=== PATIENT | male | born 1970 | race Hispanic/Latino ===

== ENCOUNTER 2017-02-19 03:00 | Inpatient (IN) | payer MEDICAID, OTHER ==
[2017-02-19 03:01] VITALS: BMI 34.2
[2017-02-19 03:54] LABS: RBC URINE < 1 /hpf (0-3); URINE BILIRUBIN NEGATIVE (NEGATIVE); URINE BLOOD NEGATIVE (NEGATIVE); URINE COLOR Straw (YELLOW); URINE GLUCOSE (UA) NORMAL (Normal); URINE KETONE NEGATIVE (NEGATIVE); URINE LEUKOCYTE ESTERASE NEG Leu/uL (Negative); URINE PROTEIN NEGATIVE (NEGATIVE); URINE UROBILINOGEN NORMAL mg/dL (0.2-1.0); WBC URINE < 1 /hpf (0-5)
[2017-02-19 03:54] LABS: BASO % 0.4 % (0.0-2.0); EOS # 0.1 K/uL (0.0-0.7); EOS % 2.5 % (0.0-4.0); HEMATOCRIT 38.4 % (35.0-51.0); LYMPH # 1.1 K/uL (1.0-4.3); LYMPH % 20.1 % (20.0-40.0); MEAN CELL VOLUME 85.8 fL (80.0-94.0); MEAN CORPUSCULAR HEMOGLOBIN 28.1 pg (27.0-31.0); MEAN CORPUSCULAR HGB CONC 32.8 g/dL (33.0-37.0); MEAN PLATELET VOLUME 7.9 fL (7.2-11.7); MONO # 0.7 K/uL (0.0-0.8); MONO % 11.6 % (0.0-10.0); RED CELL DISTRIBUTION WIDTH 13.7 % (11.5-14.5); WHITE BLOOD COUNT 5.6 K/uL (4.8-10.8)
[2017-02-19 04:03] LABS: CHLORIDE 102 mmol/L (98-107); SODIUM 143 mmol/L (132-148)
[2017-02-19 04:04] LABS: POTASSIUM 3.8 mmol/L (3.6-5.2)
[2017-02-19 04:06] LABS: ALB/GLOB RATIO 1.1 (1.0-2.1); ALKALINE PHOSPHATASE 78 U/L (38-126); ALT/SGPT 65 U/L (21-72); AST/SGOT 58 U/L (17-59); BILIRUBIN,TOTAL 0.6 mg/dL (0.2-1.3); BLOOD UREA NITROGEN 17 mg/dL (9-20); CARBON DIOXIDE 27 mmol/L (22-30); GFR AFRICAN-AMERICAN > 60; GLUCOSE,RANDOM 108 mg/dL (75-110); TOTAL PROTEIN 7.6 g/dL (6.3-8.3)
[2017-02-19 04:19] LABS: ALCOHOL SERUM < 10 mg/dl (0-10); CALCIUM 9.4 mg/dl (8.6-10.4)
--- NOTE | 2017-02-19 04:31 | C.PDOC ---
History Of Present Illness 46 year old male who presents to the ER depressed with suicidal ideation. Patient denies suicidal plan or physical complaints. Time Seen by Provider: 02/19/17 03:18 Chief Complaint (Nursing): Psychiatric Evaluation History Per: Patient History/Exam Limitations: no limitations Onset/Duration Of Symptoms: Days Current Symptoms Are (Timing): Still Present Suicide/Self Injury Attempted (Context): None Modifying Factor(s): None Associated Symptoms: Depression, Suicidal Thoughts. denies: Suicidal Plan Involuntary Hold By: None Recent travel outside of the [place]: No Past Medical History Reviewed: Historical Data, Nursing Documentation, Vital Signs Vital Signs: Last Vital Signs Temp 98.6 F 02/19/17 05:28 Pulse 74 02/19/17 05:28 Resp 16 02/19/17 05:28 BP 145/93 H 02/19/17 05:28 Pulse Ox 100 02/19/17 05:59 - Medical History PMH: Anxiety, Bipolar Disorder, Depression, Fractures (COMPOUND FX OF THERIGHT ANKLE), Hypothyroidism Surgical History: CABG - [facility] MEDICATION MANAGEMENT (08/04/16) Family History: States: Unknown Family Hx - Social History Hx Alcohol Use: No Hx Substance Use: No Review Of Systems Constitutional: Negative for: Fever, Chills Gastrointestinal: Negative for: Nausea, Vomiting, Diarrhea Psych: Positive for: Depression, Suicidal ideation Physical Exam - Physical Exam Appears: Non-toxic, No Acute Distress Skin: Normal Color, Warm, Dry Head: Atraumatic, Normacephalic Oral Mucosa: Moist Chest: Symmetrical, No Tenderness Cardiovascular: Rhythm Regular, No Murmur Respiratory: Normal Breath Sounds, No Rales, No Rhonchi, No Wheezing Gastrointestinal/Abdominal: Soft, No Tenderness Neurological/Psych: Oriented x3, Normal Speech, Normal Cognition ED Course And Treatment - Laboratory Results Result Diagrams: 02/19/17 03:51 02/19/17 03:51 O2 Sat by Pulse Oximetry: 100 (Room air) Pulse Ox Interpretation: Normal Progress Note: Blood work ordered. Patient screened by cold storage worker; patient accepted for psychiatric admission. Patient is medically cleared. Disposition Counseled Patient/Family Regarding: Diagnosis, Need For Followup, Rx Given - Disposition Disposition: HOSPITALIZED Disposition Time: 05:58 Condition: STABLE - Clinical Impression Clinical Impression: Bipolar disorder, Suicidal ideation - Scribe Statement The provider has reviewed the documentation as recorded by the Scribe Wayne Monterroso All medical record entries made by the Minervaibanahi were at my direction and personally dictated by me. I have reviewed the chart and agree that the record accurately reflects my personal performance of the history, physical exam, medical decision making, and the department course for this patient. I have also personally directed, reviewed, and agree with the discharge instructions and disposition.
--- NOTE | 2017-02-19 06:10 | PCM.BM ---
<Lisandro Palomino - Last Filed: 02/19/17 06:07> Treatment Plan Problems - Problems identified on initial assessmt Depression Date Initiated: 02/19/17 Time Initiated: 06:08 Assessment reference: NA Status: Active Suicidal Ideation Date Initiated: 02/19/17 Time Initiated: 06:09 Assessment reference: NA Status: Active Treatment assets and liabiliti Patient Assests: cooperative, educated, self-reliant, ADL independent, negotiates basic needs, cognitively intact Patient Liabilities: medical problems, other (Depressed. Claimed that his was admitted at the other hospital with psych issues.) - Milieu Protocol Maintain good personal hygiene: daily Encourage regular showers, daily Remind patient to perform daily oral care, daily Assist patient to perform ADL's Maintain personal safety: every shift Educate patient to report safety concerns to staff, every shift Monitor environment for contraband/sharps Medication safety: Monitor for expected outcome, potential side effects: every shift, Assess barriers to learning: every shift, Assess readiness for medication education: every shift <Marcel Becerril - Last Filed: 02/19/17 11:51> - Diagnosis (1) Major depression, recurrent Status: Acute Interventions: 02/19/17 11:51 * Assess/adjust medications daily and /or as needed * See patient on an individual basis 7x/week to assess symptoms of depression * Monitor for side effects & effectiveness of medications * <Maria E Nova - Last Filed: 02/20/17 10:40> Family Contact Family involvement: Family/SO is involved Family contact: Patient declines to allow family contact at present - Goals for Treatment Patient goals for treatment: "I need a night outpatient program." Discharge/Continuing Care - Education Needs Education Needs: Patient Medication, Patient Coping Skills - Discharge Discharge Criteria: Tolerates medication w/o severe side effects, Free of Suicidal thoughts Discharge to:: Home, With Family - Treatment Team Participation Discussed with Family/SO: No Was Patient/Family/SO present at Treatment Team Meeting: Yes
--- NOTE | 2017-02-19 14:27 | PCM.PSYCH ---
Initial Psychiatric Evaluation - Initial Psychiatric Evaluation Type of Admission: Voluntary Legal Status: Capacity Chief Complaint (in patient's own words): " I feel like giving up on life" History of Present Illness and Precipitating Events: The pt is seen, chart reviewed and case discussed. Mr. Smith is a 46 yo male who presented to the hospital last night with ideation's for suicide, along with depression and anxiety. The patient is most concerned about his 's well-being. He states that his was diagnosed with severe anxiety and seizures, and has been in rehab for 2 months. He says that he was out of state when his first experienced her anxiety attack and seizure attack. The patient states that his plan was to take his and kids and go to [place] for the rest of the summer, but reports his recently had another seizure attack. He contributes feeling tired, hopeless , depressed, and suicidal due to her current condition. He states that he travels extensively between visiting his and going to work, which he also contributes to his depression. He states suicidal ideation via getting hit by a car. The patient denies hallucinations. Past Psychiatric Hx: 1 prior hospitalization for suicide risk in 2006; bipolar disorder, treated with seroquel; depression; anxiety, treated with xnanx; denies opioids, alcohol, or tobacco Other Medical Hx: overweight; hypothyroidism, currently treated with 50 micrograms of synthroid. Social Hx: Lives in [place]; ; 6 children; children are currently in [place] with his [id number]; lives with his and children; employed in a steel factory, currently on vacation days. Family Hx: None Family Psychiatric Hx: is in rehab at [facility] in [place], [place] for anxiety attacks and seizures. Current Medications: Active Medications Generic Name Dose Route Start Last Admin Trade Name Freq PRN Reason Stop Dose Admin Escitalopram Oxalate 10 mg 02/19/17 11:45 02/19/17 12:57 Lexapro PO 10 mg DAILY ELDA Administration Gabapentin 300 mg 02/19/17 11:45 02/19/17 12:57 Neurontin PO 300 mg BID ELDA Administration Hydroxyzine HCl 50 mg 02/19/17 11:44 02/19/17 12:57 Atarax PO 50 mg Q6H PRN Administration Anxiety Ibuprofen 600 mg 02/19/17 11:44 Motrin Tab PO Q6H PRN Pain, moderate (4-7) Levothyroxine Sodium 50 mcg 02/20/17 06:30 Synthroid PO DAILY@0630 ELDA Trazodone HCl 100 mg 02/19/17 11:44 Desyrel PO HS PRN Insomnia Past Psychiatric History - Past Psychiatric History Pertinent Medical Hx (Current Medical&Sleep Prob, Allergies): Allergies Allergy/AdvReac Type Severity Reaction Status Date / Time iodine Allergy RASH Verified 08/04/16 15:11 shellfish derived Allergy RASH Verified 08/04/16 15:12 Levothyroxine [Synthroid] 0.05 mg PO DAILY 02/19/17 Review of Systems - Neurological Neurological: As Per HPI - Psychiatric Psychiatric: As Per HPI, Anxiety, Depression, Hopelessness, Suicidal Ideation. absent: Hallucinations Mental Status Examination - Personal Presentation Personal Presentation: Looks older than stated age - Affect Affect: Constricted - Motor Activity Motor Activity: Calm - Reliability in Providing Information Reliability in Providing Information: Good - Speech Speech: Organized - Mood Mood: Depressed, Anxious - Formal Thought Process Formal Thought Process: No Impairment - Obsessions/Compulsions Obsessions: No Compulsions: No - Cognitive Functions Orientation: Person, Place, Situation, Time Sensorium: Alert Attention/Concentration: Attentive Abstract Thinking: [place] Estimate of Intelligence: Average Judgement: Intact, as evidence by: Insight regarding need for hospitalization Memory: Recent intact, as evidence by: Ability to recall events of the day, Remote intact, as evidenced by: Abilit to recall sig. life events - Risk Risk: Withdrawal, Diminished functioning - Strength & Assets Inventory Strength & Assets Inventory: Family support, Employment status, Cooperative DSM 5 DX - DSM 5 DSM 5 Diagnosis: Anxiety d/o - severe Major Depressive Disorder - severe Bipolar d/o - severe - Recommended/Plan of Treatment Treatment Recommendations and Plan of Treatment: Start Lexipro tx Neurontin Atarax Motrin Tab Synthroid Desyrel CBT and support Attend group therapy 32 min Projected ELOS: 6-7 Days Prognosis: Good with tx - Smoking Cessation Smoking Cessation Initiated: No Reason for not providing: Nonsmoker
[2017-02-20] MEDS: Levothyroxine 50 MCG TAB PO SCH (06:17)
[2017-02-20 14:19] LABS: FREE T4 0.78 ng/dL (0.78-2.19)
[2017-02-20 14:33] LABS: THYROID STIMULATING HORMONE 1.81 mIU/L (0.46-4.68)
--- NOTE | 2017-02-20 16:29 | PCM.PYCHPN ---
Psychiatric Progress Note - Psychiatric Progress Note Patient seen today, length of contact: 15 min Patient Chief Complaint: " I'm feeling a little better" Problems Identified/Issues Discussed: The pt is seen, chart reviewed, case discussed with staff. The pt states sleeping better The pt's HTN was high this morning; the pt was advised losing weight would help lower blood pressure. Support given, CBT and WA used briefly No new symptoms reported, improving slowly and needs more time No SEs from medications, risks discussed. The patient requested an outpatient psychiatrist in [facility]. Medication Change: Yes (meds adjusted) Medical Record Reviewed: Yes Mental Status Examination - Cognitive Function Orientation: Person, Place, Situation, Time Memory: Intact Attention: WNL Concentration: WNL Association: WNL Fund of Knowledge: WNL - Mood Mood: Neutral - Affect Affect: Constricted - Speech Speech: Appropriate - Formal Thought Process Formal Thought Process: No Impairment - Suicidal Ideation Suicidal Ideation: No - Homicidal Ideation Homicidal Ideation: No Goal/Treatment Plan - Goal/Treatment Plan Need for Continued Stay: Discharge may exacerbated symptoms, Severe functional impairment Progress Toward Problem(s) and Goals/Treatment Plan: Continue Medications Individual tx with CBT and support Attend groups Support and psychoed Estimated Date of D/C: 02/26/17 - Smoking Cessation Smoking Cessation Initiated: No
[2017-02-21] MEDS: Levothyroxine 50 MCG TAB PO SCH (06:45)
--- NOTE | 2017-02-21 19:45 | PCM.PYCHPN ---
Psychiatric Progress Note - Psychiatric Progress Note Patient seen today, length of contact: 16 min Patient Chief Complaint: " I'm not sleeping well" Problems Identified/Issues Discussed: The pt is seen, chart reviewed, case discussed with staff. The pt is compliant with medications and reports no side-effects. Symptoms are improving but needs more time to stabilize. Sleep is poor, mood is low His BP is high too, norvasc increased but still high and HCTZ started After care discussed, support and psychoeducation given. Medication Change: Yes (meds adjusted) Medical Record Reviewed: Yes Mental Status Examination - Cognitive Function Orientation: Person, Place, Situation, Time Memory: Intact Attention: WNL Concentration: WNL Association: WNL Fund of Knowledge: WNL - Mood Mood: Neutral - Affect Affect: Constricted - Speech Speech: Appropriate - Formal Thought Process Formal Thought Process: No Impairment - Suicidal Ideation Suicidal Ideation: No - Homicidal Ideation Homicidal Ideation: No Goal/Treatment Plan - Goal/Treatment Plan Need for Continued Stay: Discharge may exacerbated symptoms, Severe functional impairment Progress Toward Problem(s) and Goals/Treatment Plan: Continue Medications Individual tx with CBT and support Attend groups Support and psychoed After care is likely to CRC Estimated Date of D/C: 02/26/17
[2017-02-22] MEDS: Levothyroxine 50 MCG TAB PO SCH (06:40)
--- NOTE | 2017-02-22 19:30 | PCM.PYCHPN ---
Psychiatric Progress Note - Psychiatric Progress Note Patient seen today, length of contact: 17 min Patient Chief Complaint: " I'm so so" Problems Identified/Issues Discussed: The pt is seen, chart reviewed, case discussed with staff. Support given, psychoed used No new symptoms reported, improving slowly and needs more time No SEs from medications, risks discussed. After care discussed HCTZ started Medication Change: Yes (meds adjusted) Medical Record Reviewed: Yes Mental Status Examination - Cognitive Function Orientation: Person, Place, Situation, Time Memory: Intact Attention: WNL Concentration: WNL Association: WNL Fund of Knowledge: WNL - Mood Mood: Neutral - Affect Affect: Constricted - Speech Speech: Appropriate - Formal Thought Process Formal Thought Process: No Impairment - Suicidal Ideation Suicidal Ideation: No - Homicidal Ideation Homicidal Ideation: No Goal/Treatment Plan - Goal/Treatment Plan Need for Continued Stay: Discharge may exacerbated symptoms, Severe functional impairment Progress Toward Problem(s) and Goals/Treatment Plan: Continue Medications Individual tx with CBT and support Attend groups Support and psychoed After care is likely to CRC Estimated Date of D/C: 02/26/17
[2017-02-23] MEDS: Levothyroxine 50 MCG TAB PO SCH (06:49)
--- NOTE | 2017-02-23 15:22 | PCM.PYCHPN ---
Psychiatric Progress Note - Psychiatric Progress Note Patient seen today, length of contact: 16 min Patient Chief Complaint: " I'm feeling better." Problems Identified/Issues Discussed: The pt is seen, chart reviewed, case discussed with staff. Support given, psychoed used The patient reports sleeping better The patient reports anxiety, but less than before. The patient denies suicidal ideation or feelings of hopelessness No new symptoms reported, overall improving slowly and needs more time No SEs from medications, risks discussed. After care discussed Medication Change: Yes (meds adjusted) Medical Record Reviewed: Yes Mental Status Examination - Cognitive Function Orientation: Person, Place, Situation, Time Memory: Intact Attention: WNL Concentration: WNL Association: WNL Fund of Knowledge: WNL - Mood Mood: Neutral - Affect Affect: Constricted - Speech Speech: Appropriate - Formal Thought Process Formal Thought Process: No Impairment - Suicidal Ideation Suicidal Ideation: No - Homicidal Ideation Homicidal Ideation: No Goal/Treatment Plan - Goal/Treatment Plan Need for Continued Stay: Discharge may exacerbated symptoms, Severe functional impairment Progress Toward Problem(s) and Goals/Treatment Plan: Continue Medications Individual tx with CBT and support Attend groups Support and psychoed After care is likely to CRC Estimated Date of D/C: 02/26/17
[2017-02-24] MEDS: Levothyroxine 50 MCG TAB PO SCH (06:27)
--- NOTE | 2017-02-24 16:56 | PCM.PYCHPN ---
Psychiatric Progress Note - Psychiatric Progress Note Patient seen today, length of contact: 15 min Patient Chief Complaint: " I'm feeling OK." Problems Identified/Issues Discussed: The pt is seen, chart reviewed, case discussed with staff. Support given, psychoed used The patient reports sleeping better The patient reports less anxiety The patient denies suicidal ideation or feelings of hopelessness No new symptoms reported, overall improving slowly and needs more time No SEs from medications, risks discussed. After care discussed; patient also counseled on checking blood pressure regularly. Medication Change: Yes (meds adjusted) Medical Record Reviewed: Yes Mental Status Examination - Cognitive Function Orientation: Person, Place, Situation, Time Memory: Intact Attention: WNL Concentration: WNL Association: WNL Fund of Knowledge: WNL - Mood Mood: Neutral - Affect Affect: Broad - Speech Speech: Appropriate - Formal Thought Process Formal Thought Process: No Impairment - Suicidal Ideation Suicidal Ideation: No - Homicidal Ideation Homicidal Ideation: No Goal/Treatment Plan - Goal/Treatment Plan Need for Continued Stay: Discharge may exacerbated symptoms, Severe functional impairment Progress Toward Problem(s) and Goals/Treatment Plan: Continue Medications Individual tx with CBT and support Attend groups Support and psychoed After care is likely to CRC Estimated Date of D/C: 02/26/17
[2017-02-25] MEDS: Levothyroxine 50 MCG TAB PO SCH (06:39)
--- NOTE | 2017-02-25 15:17 | PCM.PYCHPN ---
Psychiatric Progress Note - Psychiatric Progress Note Patient seen today, length of contact: 16 min Patient Chief Complaint: " My mind is racing." Problems Identified/Issues Discussed: The pt is seen, chart reviewed, case discussed with staff. Support given, psychoed used The patient reports having more anxiety again last night; he received clonidine and ativan. The patient states that thinking about work and his exacerbated his anxiety last night. Patient reports medications are helping; overall improving slowly and needs more time. No SEs from medications, risks discussed. The patient denies suicidal ideation or feelings of hopelessness After care discussed; patient counseled on finding a PCP upon discharge. Medication Change: Yes (meds adjusted) Medical Record Reviewed: Yes Mental Status Examination - Cognitive Function Orientation: Person, Place, Situation, Time Memory: Intact Attention: WNL Concentration: WNL Association: WNL Fund of Knowledge: WNL - Mood Mood: Anxious - Affect Affect: Broad - Speech Speech: Appropriate - Formal Thought Process Formal Thought Process: No Impairment - Suicidal Ideation Suicidal Ideation: No - Homicidal Ideation Homicidal Ideation: No Goal/Treatment Plan - Goal/Treatment Plan Need for Continued Stay: Discharge may exacerbated symptoms, Severe functional impairment Progress Toward Problem(s) and Goals/Treatment Plan: Continue Medications Individual tx with CBT and support Attend groups Support and psychoed After care is likely to CRC Estimated Date of D/C: 02/27/17
[2017-02-26] MEDS: Levothyroxine 50 MCG TAB PO SCH (06:03)
--- NOTE | 2017-02-26 15:47 | PCM.PYCHPN ---
Psychiatric Progress Note - Psychiatric Progress Note Patient seen today, length of contact: 14 min Patient Chief Complaint: " I'm OK." Problems Identified/Issues Discussed: The pt is seen, chart reviewed, case discussed with staff. Support given, psychoed used The patient reports having lots of anxiety because his had another seizure attack. Patient reports medications are helping; overall improving slowly and needs more time. No SEs from medications, risks discussed. After care discussed; patient would like one more day to alleviate anxiety by socializing before being discharged. Relaxation skills discussed Medication Change: Yes (meds adjusted) Medical Record Reviewed: Yes Mental Status Examination - Cognitive Function Orientation: Person, Place, Situation, Time Memory: Intact Attention: WNL Concentration: WNL Association: WNL Fund of Knowledge: WNL - Mood Mood: Anxious - Affect Affect: Broad - Speech Speech: Appropriate - Formal Thought Process Formal Thought Process: No Impairment - Suicidal Ideation Suicidal Ideation: No - Homicidal Ideation Homicidal Ideation: No Goal/Treatment Plan - Goal/Treatment Plan Need for Continued Stay: Discharge may exacerbated symptoms Progress Toward Problem(s) and Goals/Treatment Plan: Continue Medications Individual tx with CBT and support Attend groups Support and psychoed D/c Thursday; After care to CRC Estimated Date of D/C: 02/27/17
[2017-02-27] MEDS: Levothyroxine 50 MCG TAB PO SCH (06:21)
--- NOTE | 2017-02-27 08:59 | PCM.PYCHDC ---
Mental Status Examination - Mental Status Examination Orientation: Person, Place, Situation, Time Memory: Intact Mood: Neutral Affect: Broad Speech: Appropriate Attention: WNL Concentration: WNL Association: WNL Fund of Knowledge: WNL Formal Thought Process: No Impairment Suicidal Ideation: No Current Homicidal Ideation?: No Discharge Summary - Discharge Note Reason for Hospitalization: Depressed with suicidal ideation. Consultations:: List each consultation separately and include: 1. Reason for request. 2. Findings. 3. Follow-up Summary of Hospital Course include:: 1. Description of specific treatment plan utilized for patients during their course of treatmen. 2. Summarize the time- course for resolution of acute symptoms and/or regressed behaviors. 3. Describe issues identified and worked on during hospitalization. 4. Describe medication utilized. 5. Describe medical problems identified and treated. 6. Reassessment of suicide risk Summary of Hospital Course: The pt was admitted for bipolar d/o and suicidal ideation's and started on treatment with psychotherapy, support, psychoeducation and medications. HI and CBT used. The pt attended groups and activities, as well as milieu therapy. All the risks and benefits of medications are discussed and the patient understood and agreed. The pt improved with the treatments provided. He was pleasant but anxious Had HTN, meds adjusted After care discussed with the patient; the patient will spend 1 day with leisure activity and then see his and children. - Final Diagnosis (DSM 5) Condition upon Discharge: STABLE DSM 5: Major depressive d/o - recurrent, severe Anxiety d/o - unspecified Disposition: HOME/ ROUTINE Follow-up Treatment Plan: Continue below medications after discharge. Follow after care plan as discussed; outpatient at [facility] Use relapse prevention skills Return to ER or call 911 if suicidal ideation's or other symptoms relapse. Stay away from stressors See your PCP re HTN and annual check up Prescriptions/Medication Reconciliation: amLODIPine [Norvasc] 10 mg PO DAILY #30 tab Escitalopram [Lexapro] 10 mg PO DAILY #30 tab Gabapentin [Neurontin] 300 mg PO TID #90 cap hydroCHLOROthiazide [Hydrodiuril] 25 mg PO DAILY #30 tab Levothyroxine [Synthroid] 50 mcg PO DAILY@0630 #30 tab traZODone [Desyrel] 150 mg PO HS PRN #30 tab PRN Reason: Insomnia - Smoking Cessation Smoking Cessation Medication prescribed: No - Antipsychotic Medications Pt discharged on 2 or more routine antipsychotic medications: No
[2017-02-27 09:45] VITALS: BP 133/89; PULSE 94; RESP 16; TEMP 98.3; O2SAT 99
== END 2017-02-27 13:00 | disposition home or self-care (01) | DRG 430 ==
LOC: C.ER 03:00 → C.5E 04:12
PROVIDERS: ADMIT Psychiatry & Neurology Psychiatry; ATTEND Psychiatry & Neurology Psychiatry
DX: F33.9 Major depressive disorder, recurrent, unspecified (principal); F41.1 Generalized anxiety disorder

== ENCOUNTER 2017-09-07 20:55 | Inpatient (IN) | payer MEDICAID, OTHER ==
[2017-09-07 20:56] VITALS: BMI 37.5
--- NOTE | 2017-09-07 22:12 | C.PDOC ---
History Of Present Illness 47 year old male with psychiatric history presents to the ED for evaluation of suicidal ideation for the past 2 days worsening today. Patient reports suicidal plan by stabbing himself. Patient notes that his 1 month ago and that he has had increased depression since that time. He notes history of psychiatric admissions. He does not currently follow a psychiatrist. He denies drugs or alcohol. Chief Complaint (Nursing): Psychiatric Evaluation History Per: Patient History/Exam Limitations: no limitations Onset/Duration Of Symptoms: Days Current Symptoms Are (Timing): Still Present Modifying Factor(s): None Associated Symptoms: Depression, Suicidal Thoughts, Suicidal Plan (stabbing) Past Medical History Reviewed: Historical Data, Nursing Documentation, Vital Signs Vital Signs: Last Vital Signs Temp 97.8 F 09/08/17 02:15 Pulse 74 09/08/17 02:15 Resp 20 09/08/17 02:15 BP 126/73 09/08/17 02:15 Pulse Ox 97 09/08/17 02:59 - Medical History PMH: Anxiety, Bipolar Disorder, Depression, Fractures (COMPOUND FX OF THERIGHT ANKLE), Gall Bladder Disease (Removed), Hypothyroidism Denies: Diabetes, Hepatitis, HIV, HTN, Chronic Kidney Disease, Seizures, Sexually Transmitted Disease Surgical History: CABG, Cholecystectomy - [facility] GROUP PSYCHOTHERAPY (02/28/17) INDIVIDUAL PSYCHOTHERAPY, SUPPORTIVE (02/28/17) MEDICATION MANAGEMENT (08/04/16) Family History: States: Unknown Family Hx - Social History Hx Alcohol Use: No Hx Substance Use: No Review Of Systems Except As Marked, All Systems Reviewed And Found Negative. Constitutional: Negative for: Fever, Chills ENT: Negative for: Ear Pain, Throat Pain Cardiovascular: Negative for: Chest Pain Respiratory: Negative for: Shortness of Breath Gastrointestinal: Negative for: Nausea, Vomiting, Abdominal Pain, Diarrhea Skin: Negative for: Rash Neurological: Negative for: Headache Psych: Positive for: Depression, Suicidal ideation Physical Exam - Physical Exam Appears: Well, No Acute Distress Skin: Normal Color, Warm, Dry Head: Atraumatic, Normacephalic Eye(s): bilateral: Normal Inspection, PERRL, EOMI Oral Mucosa: Moist Tongue: Normal Appearing Lips: Normal Appearing Throat: Normal Neck: Normal, Normal ROM, Supple Cardiovascular: Rhythm Regular Respiratory: Normal Breath Sounds Gastrointestinal/Abdominal: Soft, No Tenderness, Other (obese ) Back: Normal Inspection Extremity: Normal ROM, No Deformity Neurological/Psych: Oriented x3, Normal Speech ED Course And Treatment - Laboratory Results Result Diagrams: 09/07/17 22:46 09/07/17 22:46 O2 Sat by Pulse Oximetry: 97 Medical Decision Making Medical Decision Making: Impression: suicidal ideation, bipolar disorder Will have patient evaluated by crisis and likely admission. Disposition - Disposition Disposition: HOSPITALIZED Disposition Time: 03:56 Condition: GOOD - Clinical Impression Clinical Impression: Moderate major depression, single episode - Scribe Statement The provider has reviewed the documentation as recorded by the Scribe The provider has reviewed the documentation as recorded by the Scribe (Josh Carranza) Provider Attestation: All medical record entries made by the Scribe were at my direction and personally dictated by me. I have reviewed the chart and agree that the record accurately reflects my personal performance of the history, physical exam, medical decision making, and the department course for this patient. I have also personally directed, reviewed, and agree with the discharge instructions and disposition.
[2017-09-07 22:56] LABS: BASO % 0.3 % (0.0-2.0); EOS # 0.1 K/uL (0.0-0.7); EOS % 2.6 % (0.0-4.0); HEMOGLOBIN 11.3 g/dL (12.0-18.0); LYMPH # 1.2 K/uL (1.0-4.3); LYMPH % 21.9 % (20.0-40.0); MEAN CELL VOLUME 85.1 fL (80.0-94.0); MEAN CORPUSCULAR HEMOGLOBIN 28.5 pg (27.0-31.0); MEAN CORPUSCULAR HGB CONC 33.5 g/dL (33.0-37.0); MEAN PLATELET VOLUME 8.1 fL (7.2-11.7); MONO # 0.5 K/uL (0.0-0.8); MONO % 9.1 % (0.0-10.0); NEUT # 3.5 K/uL (1.8-7.0); NEUT % 66.1 % (50.0-75.0); NRBC % 0.1 % (0.0-2.0); RBC 3.97 Mil/uL (4.40-5.90); RED CELL DISTRIBUTION WIDTH 14.6 % (11.5-14.5); WHITE BLOOD COUNT 5.3 K/uL (4.8-10.8)
[2017-09-07 23:08] LABS: ALB/GLOB RATIO 1.3 (1.0-2.1); ALBUMIN 3.7 g/dL (3.5-5.0); ALT/SGPT 20 U/L (21-72); AST/SGOT 22 U/L (17-59); BLOOD UREA NITROGEN 14 mg/dL (9-20); CALCIUM 8.8 mg/dl (8.6-10.4); GFR AFRICAN-AMERICAN > 60; GFR NON-AFRICAN AMERICAN > 60
[2017-09-07 23:49] LABS: SQUAMOUS EPITHIAL 2 /hpf (0-5); URINE BACTERIA RARE (<OCC); URINE BILIRUBIN NEGATIVE (NEGATIVE); URINE BLOOD NEGATIVE (NEGATIVE); URINE CLARITY Clear (Clear); URINE COLOR Straw (YELLOW); URINE GLUCOSE (UA) NORMAL (Normal); URINE LEUKOCYTE ESTERASE NEG Leu/uL (Negative); URINE NITRATE NEGATIVE (NEGATIVE); URINE PROTEIN NEGATIVE (NEGATIVE); URINE UROBILINOGEN NORMAL mg/dL (0.2-1.0)
[2017-09-07 23:58] LABS: BARBITURATES, UR NEGATIVE (NEGATIVE); BENZODIAZEPINES, UR NEGATIVE (NEGATIVE); OPIATES, UR NEGATIVE (NEGATIVE); PHENCYCLIDINE, UR NEGATIVE (NEGATIVE)
--- NOTE | 2017-09-08 04:03 | PCM.BM ---
<Heidy Sanissa - Last Filed: 09/08/17 04:02> Treatment Plan Problems - Problems identified on initial assessmt Suicidal Ideation Date Initiated: 09/08/17 Time Initiated: 02:45 Assessment reference: NA Status: Active Depression Date Initiated: 09/08/17 Time Initiated: 02:45 Assessment reference: NA Status: Active Treatment assets and liabiliti Patient Assests: educated, self-reliant, ADL independent, negotiates basic needs Patient Liabilities: live alone, poor support system, relationship conflicts, medical problems - Milieu Protocol Maintain good personal hygiene: daily Encourage regular showers, daily Remind patient to perform daily oral care, daily Assist patient to perform ADL's Conduct patient checks and document Observation sheet: Q15 minutes Maintain personal safety: every shift Educate patient to report safety concerns to staff, every shift Monitor environment for contraband/sharps Medication safety: Monitor for expected outcome, potential side effects: every shift, Assess barriers to learning: every shift, Assess readiness for medication education: every shift <Maria E Nova - Last Filed: 09/11/17 11:01> Family Contact Family involvement: Famliy/SO not involved - Goals for Treatment Patient goals for treatment: "I need a new outpatient psychiatrist." Discharge/Continuing Care - Education Needs Education Needs: Patient Medication, Patient Coping Skills - Discharge Discharge Criteria: Tolerates medication w/o severe side effects, Free of Suicidal thoughts, Reduction of target symptoms Discharge to:: Home - Treatment Team Participation Discussed with Family/SO: No Was Patient/Family/SO present at Treatment Team Meeting: Yes <Fredi Vazquez - Last Filed: 09/11/17 11:05> - Diagnosis (1) Bipolar disorder Status: Acute Interventions: 09/11/17 11:04 * Assess/adjust medications daily and /or as needed * See patient on an individual basis 7x/week to assess level of manic behaviors and stability * Discuss risks, benefits, side effects and alternatives of medications *
--- NOTE | 2017-09-08 10:45 | PCM.PSYCH ---
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 The patient reports that he lost his last month due to a brain aneurysm and has been depressed since then. He reports being on our unit last February when she first became sick because it was overwhelming and became a lot for him to handle. The patient says that since July he has had suicidal thoughts and urges to kill himself, he reports that he has cut himself in the past month. He reports that he he does not have any definitive plans to kill himself but there are a lot of sharp objects where he works. The patient reports that he only gets 2 hours of sleep a night and that today has been the first day that he has eaten well in a while. The patient reports that it is difficult for him to concentrate at work and that he has become disinterested in working. The patient reports that he normally loves watching football but his interest in watching also decreased in the past month or so. The patient had been on Wellbutrin and Seroquel but has insurance issues and could not get his medications since June. His insurance issues are now resolved and he would like to see a psychiatrist and therapist on an outpatient basis as well as take medications for his depression. However, he requests changing Seroquel because it caused him to gain a lot of weight. The patient reports that he is becoming anxious due to his condition. The patient denies the use of alcohol, drugs, and tobacco. The patient denies hearing voices or visual hallucinations. The patient does mention that he has 7 year old twins from a previous marriage whom he tries to keep in touch with but has found it difficult because of his ex -. Medical Hx - denies, but I had high blood pressure but I got it under control now Medications - denies taking anything at this time Psych Hx: Depression Psych Hosp: once, last February Family Psych Hx: his sister takes medications for a mental issue but does not know her diagnosis Patient is alert and cooperative. The patient is a large male appearing slightly unkempt. The patient maintains eye contact and attention during the encounter. He responds to questions appropriately in a normal tone. His thought process is linear. The patient's mood is depressed and his affect is consistent with his mood. The patient reports suicidal ideation. Current Medications: Active Medications Generic Name Dose Route Start Last Admin Trade Name Tressa PRN Reason Stop Dose Admin Pneumococcal Polyvalent Vaccine 0.5 ml 09/11/17 10:00 Pneumovax 23 Vaccine IM 09/11/17 10:01 .ONCE ONE Past Psychiatric History - Past Psychiatric History Previous Treatment History: Inpatient Pertinent Medical Hx (Current Medical&Sleep Prob, Allergies): Allergies Allergy/AdvReac Type Severity Reaction Status Date / Time iodine Allergy RASH Verified 09/07/17 21:09 shellfish derived Allergy RASH Verified 09/07/17 21:09 Levothyroxine [Synthroid] 50 mcg PO DAILY@0630 #30 tab 03/06/17 QUEtiapine [SEROquel] 300 mg PO HS #15 tab 03/06/17 Topiramate [Topamax] 25 mg PO BID #30 tab 03/06/17 amLODIPine [Norvasc] 10 mg PO DAILY #15 tab 03/06/17 hydroCHLOROthiazide [Hydrodiuril] 25 mg PO DAILY #15 tab 03/06/17 Review of Systems - Neurological Neurological: UNREMARKABLE - Psychiatric Psychiatric: Abnormal Sleep Pattern, Anhedonia, Anxiety, Change in Appetite, Depression, Difficulty Concentrating, Hopelessness, Suicidal Ideation. absent: Auditory Hallucinations, Hallucinations, Homicidal Ideation, Panic Attacks, Paranoia, Visual Hallucinations Mental Status Examination - Personal Presentation Personal Presentation: Looks stated age - Affect Affect: Broad - Motor Activity Motor Activity: Calm - Reliability in Providing Information Reliability in Providing Information: Good - Speech Speech: Organized - Mood Mood: Depressed - Formal Thought Process Formal Thought Process: No Impairment - Obsessions/Compulsions Obsessions: None Compulsions: None - Cognitive Functions Orientation: Person, Place, Situation, Time Sensorium: Alert Attention/Concentration: Attentive Abstract Thinking: [place] Estimate of Intelligence: Average Judgement: Intact, as evidence by: Good judgement, Intact, as evidence by: Insight regarding need for hospitalization Memory: Recent intact, as evidence by: Ability to recall events of the day, Remote intact, as evidenced by: Abilit to recall sig. life events - Risk Risk: Suicidal - Strength & Assets Inventory Strength & Assets Inventory: Employment status, Skills, Cooperative DSM 5 DX - DSM 5 DSM 5 Diagnosis: Bipolar mixed severe without psychotic features - Recommended/Plan of Treatment Treatment Recommendations and Plan of Treatment: Bipolar mixed severe without psychotic features Attend groups and activities Individual therapy daily Psychoeducation and support daily Encourage compliance with meds and after care Refer to outpatient therapy Teach healthy lifestyle methods, i.e. diet, exercise, meditation Atarax 25 mg PO Q6 PRN Seroquel 100mg PO HS Topamax 25 mg PO BID Geodon 20mg PO BID - Smoking Cessation Smoking Cessation Initiated: No Reason for not providing: Patient denies smoking
[2017-09-09] MEDS: Levothyroxine 50 MCG TAB PO SCH (05:35)
[2017-09-09 06:04] VITALS: O2SAT 97
--- NOTE | 2017-09-09 10:29 | PCM.PYCHPN ---
Psychiatric Progress Note - Psychiatric Progress Note Patient seen today, length of contact: 15 min Patient Chief Complaint: "I'm still the same, still down" Problems Identified/Issues Discussed: Patient was seen and examined, chart was reviewed and discussed with staff. Patient reports that he is feeling the same as yesterday, he is still feeling depressed and has thoughts of suicide. He reports that he was able to sleep better last night and that his appetite is better than what it had been. He reports that he experiences racing thoughts, which are not specific to a certain time of day. He reports that he is feeling tired. Patient is alert and appears well groomed today. He is cooperative, maintains eye contact and attention during the encounter. He responds to questions appropriately in a normal tone. His thought process is linear. The patient's mood is depressed and his affect is consistent with his mood. The patient reports suicidal ideation. Patient is compliant with medications and denies any side effects. Symptoms are improving but need more time to stabilize. Support and psychoeducation given. Medication Change: Yes Medical Record Reviewed: Yes Mental Status Examination - Cognitive Function Orientation: Person, Place, Situation, Time Attention: WNL Concentration: WNL Association: WNL Fund of Knowledge: WNL - Mood Mood: Depressed - Affect Affect: Broad - Speech Speech: Appropriate - Formal Thought Process Formal Thought Process: No Impairment - Suicidal Ideation Suicidal Ideation: Yes - Homicidal Ideation Homicidal Ideation: No Goal/Treatment Plan - Goal/Treatment Plan Need for Continued Stay: Severe depression anxiety, Discharge may exacerbated symptoms, Severe functional impairment Progress Toward Problem(s) and Goals/Treatment Plan: Bipolar mixed severe without psychotic features Attend groups and activities Individual therapy daily Psychoeducation and support daily Encourage compliance with meds and after care Refer to outpatient therapy Teach healthy lifestyle methods, i.e. diet, exercise, meditation Atarax 25 mg PO Q6 PRN Seroquel 100mg PO HS Topamax 25 mg PO BID Geodon 20mg PO BID
[2017-09-10] MEDS: Levothyroxine 50 MCG TAB PO SCH (05:56)
--- NOTE | 2017-09-10 12:35 | PCM.PYCHPN ---
Psychiatric Progress Note - Psychiatric Progress Note Patient seen today, length of contact: 15 min Patient Chief Complaint: "my ankles are swollen" Problems Identified/Issues Discussed: Patient was seen and examined, chart was reviewed and discussed with staff. Patient reports that he is feeling a bit better, he reports that his sleep and eating are getting better. He reports that he is concerned because his right ankle is swollen and it is becoming very uncomfortable. He reports that he has had surgery done on that ankle in the past but the swelling began 5 days ago. He reports that his mood is a bit better but he is still feeling down. Patient is alert and well groomed. He is cooperative, maintains eye contact and attention during the encounter. He responds to questions appropriately in a normal tone. His thought process is linear. The patient's mood is depressed and his affect is consistent with his mood. Patient is compliant with medications and denies any side effects. Symptoms are improving but need more time to stabilize. Support and psychoeducation given. Medication Change: Yes Medical Record Reviewed: Yes Mental Status Examination - Cognitive Function Orientation: Person, Place, Situation, Time Attention: WNL Concentration: Poor Association: WNL Fund of Knowledge: Poor - Mood Mood: Depressed, Anxious - Affect Affect: Broad, Constricted - Speech Speech: Appropriate - Formal Thought Process Formal Thought Process: No Impairment - Suicidal Ideation Suicidal Ideation: No - Homicidal Ideation Homicidal Ideation: No Goal/Treatment Plan - Goal/Treatment Plan Need for Continued Stay: Severe depression anxiety, Discharge may exacerbated symptoms, Severe functional impairment Progress Toward Problem(s) and Goals/Treatment Plan: Bipolar mixed severe without psychotic features Attend groups and activities Individual therapy daily Psychoeducation and support daily Encourage compliance with meds and after care Refer to outpatient therapy Teach healthy lifestyle methods, i.e. diet, exercise, meditation Atarax 25 mg PO Q6 PRN Seroquel 100mg PO HS Topamax 25 mg PO BID Geodon 20mg PO BID
--- NOTE | 2017-09-10 13:10 | CP.PCM.CON ---
<AntonioZulema - Last Filed: 09/10/17 13:19> History of Present Illness - History of Present Illness History of Present Illness: Medicine Consult Note Reason for consult: lower extremity edema HPI: Patient is a 47 year old male with PMH of hypothyroidism, depression, and bipolar disorder who came to the hospital to be treated for depression and suicidal thoughts/urges. Patient says his 1 month ago from a brain aneurysm and since then he has become progressively more depressed. Medicine was consulted for lower extremity swelling. Patient says he has had this before 3-4 years ago and he was given lasix for it. Patient says it resolved and cardiac workup was negative at that time but he never had any follow up tests after that. Patient was seeing a PCP but he stopped practicing about 1 year ago and the patient has not followed up with another doctor since then. Patient does not take medication for hypothyroidism because he does not have a doctor to write him a prescription for his synthroid anymore. Patient complains of some low back, knee, and right ankle pain but otherwise denies fever, chills, headache, dizziness, chest pain, palpitations, SOB, cough, abdominal pain, nausea, vomiting, diarrhea, constipation, calf pain, thigh pain, homicidal ideation, and visual/auditory hallucinations. PMH: hypothyroidism, depression, and bipolar disorder Meds: used to take synthroid 50 mcg daily, wellbutrin, and seroquil - currently not taking any home meds PSH: right ankle, right wrist, cholecystectomy Allergies: Seafood (swelling), iodine (swelling), ketorolac (vomiting) FH: Mother with ovarian cancer, father with throat cancer SH: denies tobacco, alcohol, and recreational drug use Review of Systems - Review of Systems All systems: reviewed and no additional remarkable complaints except (as per HPI ) Past Patient History - Infectious Disease Hx of Infectious Diseases: None - Tetanus Immunizations Tetanus Immunization: Unknown - Past Medical History & Family History Past Medical History?: Yes - Past Social History Smoking Status: Never Smoked - CARDIAC Hx Hypertension: No - PULMONARY Hx Tuberculosis: No - NEUROLOGICAL Hx Seizures: No - HEENT Hx HEENT Problems: No - RENAL Hx Chronic Kidney Disease: No - ENDOCRINE/METABOLIC Hx Hypothyroidism: Yes - HEMATOLOGICAL/ONCOLOGICAL Hx Human Immunodeficiency Virus (HIV): No - INTEGUMENTARY Hx Dermatological Problems: No - MUSCULOSKELETAL/RHEUMATOLOGICAL Hx Fractures: Yes (COMPOUND FX OF THERIGHT ANKLE) - GASTROINTESTINAL Hx Gall Bladder Disease: Yes (Removed) - GENITOURINARY/GYNECOLOGICAL Hx Sexually Transmitted Disorders: No - PSYCHIATRIC Hx Substance Use: No - SURGICAL HISTORY Hx Cholecystectomy: Yes Hx Coronary Artery Bypass Graft: Yes - ANESTHESIA Hx Anesthesia: Yes Hx Anesthesia Reactions: No Hx Malignant Hyperthermia: No Meds Allergies/Adverse Reactions: Allergies Allergy/AdvReac Type Severity Reaction Status Date / Time iodine Allergy RASH Verified 09/07/17 21:09 ketorolac [From Toradol] Allergy ANAPHYLAXIS Verified 09/09/17 02:03 shellfish derived Allergy RASH Verified 09/07/17 21:09 - Medications Medications: Current Medications Acetaminophen (Tylenol 325mg Tab) 650 mg PO Q6 PRN PRN Reason: Pain, Mild (1-3) Last Admin: 09/09/17 10:33 Dose: 650 mg Amlodipine Besylate (Norvasc) 10 mg PO DAILY [facility] Last Admin: 09/10/17 09:52 Dose: Not Given Hydroxyzine HCl (Atarax) 25 mg PO Q6 PRN PRN Reason: Agitation Levothyroxine Sodium (Synthroid) 50 mcg PO DAILY@0630 [facility] Last Admin: 09/10/17 05:56 Dose: 50 mcg Pneumococcal Polyvalent Vaccine (Pneumovax 23 Vaccine) 0.5 ml IM .ONCE ONE Stop: 09/11/17 10:01 Topiramate (Topamax) 25 mg PO BID [facility] Last Admin: 09/10/17 09:46 Dose: 25 mg Ziprasidone (Geodon Cap) 20 mg PO BID [facility] Last Admin: 09/10/17 09:46 Dose: 20 mg Physical Exam - Constitutional Appears: Non-toxic, No Acute Distress - Head Exam Head Exam: ATRAUMATIC, NORMAL INSPECTION, NORMOCEPHALIC - Eye Exam Eye Exam: EOMI, Normal appearance, PERRL - ENT Exam ENT Exam: Mucous Membranes Moist - Respiratory Exam Respiratory Exam: Clear to Auscultation Bilateral, NORMAL BREATHING PATTERN. absent: Accessory Muscle Use, Rales, Rhonchi, Wheezes, Respiratory Distress - Cardiovascular Exam Cardiovascular Exam: RRR, +S1, +S2. absent: Bradycardia, Tachycardia - GI/Abdominal Exam GI & Abdominal Exam: Normal Bowel Sounds, Soft. absent: Distended, Tenderness - Extremities Exam Extremities exam: Positive for: pedal edema, tenderness (around right ankle ). Negative for: calf tenderness - Neurological Exam Neurological exam: Alert, Oriented x3 - Psychiatric Exam Psychiatric exam: Depressed - Skin Skin Exam: Dry, Intact, Normal Color, Warm Results - Vital Signs Recent Vital Signs: Last Vital Signs Temp 97.6 F 09/10/17 05:57 Pulse 83 09/10/17 05:57 Resp 20 09/10/17 05:57 BP 127/69 09/10/17 05:57 Pulse Ox 97 09/09/17 06:04 - Labs Result Diagrams: 09/07/17 22:46 09/07/17 22:46 Assessment & Plan - Assessment and Plan (Free Text) Plan: LE edema * Venous duplex of b/l lower extremity * EKG Hypothyroidism * check T4, TSH * will add synthroid if needed based on hormone levels Depression * management as per primary team Patient discussed with Dr. Taveras <Kofi Taveras - Last Filed: 09/10/17 18:23> Meds - Medications Medications: Current Medications Acetaminophen (Tylenol 325mg Tab) 650 mg PO Q6 PRN PRN Reason: Pain, Mild (1-3) Last Admin: 09/09/17 10:33 Dose: 650 mg Amlodipine Besylate (Norvasc) 10 mg PO DAILY [facility] Last Admin: 09/10/17 09:52 Dose: Not Given Furosemide (Lasix) 20 mg PO DAILY [facility] Hydroxyzine HCl (Atarax) 25 mg PO Q6 PRN PRN Reason: Agitation Levothyroxine Sodium (Synthroid) 50 mcg PO DAILY@0630 [facility] Last Admin: 09/10/17 05:56 Dose: 50 mcg Pneumococcal Polyvalent Vaccine (Pneumovax 23 Vaccine) 0.5 ml IM .ONCE ONE Stop: 09/11/17 10:01 Topiramate (Topamax) 25 mg PO BID [facility] Last Admin: 09/10/17 17:09 Dose: 25 mg Ziprasidone (Geodon Cap) 20 mg PO BID [facility] Last Admin: 09/10/17 17:09 Dose: 20 mg Results - Vital Signs Recent Vital Signs: Last Vital Signs Temp 97.6 F 09/10/17 05:57 Pulse 86 09/10/17 16:42 Resp 20 09/10/17 05:57 BP 144/97 H 09/10/17 16:42 Pulse Ox 97 09/09/17 06:04 - Labs Result Diagrams: 09/07/17 22:46 09/07/17 22:46 Attending/Attestation - Attestation I have personally seen and examined this patient.: Yes I have fully participated in the care of the patient.: Yes I have reviewed all pertinent clinical information: Yes Notes (Text): 09/10/17 18:18 Patient was seen and examined at 5:00 PM in Bed 537 P History, Exam, assessment and plan were gone over with the resident. Also on Exam: Bilateral Lower Legs with nonpitting edema. Bilateral Ankles were edematous as well as feet. Pedal pulses are palpable. Capillary Refill is 2 seconds. Left Great Toe nail looks like it is about to be detached and bilateral toenails have onychomycosis GI: Central Obesity therefore Liver and Spleen could not be palpated Bilateral Venous Dopplers are negative for DVT. Spoke with Nurse to provide pillows upon which patient can keep legs elevated while laying down at night. Lasix 20 mg PO 1x/day to start 09/11/17 to help with the bilateral leg edema. Podiatry Resident to be paged on morning 09/11/17 at [phone] to for further evaluation of the Left Great Toenail. Kofi Taveras D.O.
--- NOTE | 2017-09-10 15:33 | VASCLAB ---
PROCEDURE: Lower Extremity Venous Duplex Exam. HISTORY: LE edema PRIORS: None. TECHNIQUE: Bilateral common femoral, femoral, popliteal and posterior tibial, peroneal and great saphenous veins were evaluated. Flow was assessed with color Doppler, compressibility, assessment of phasic flow and augmentation response. Report prepared by TAWANA Queen, RVT FINDINGS: RIGHT: 1. Common Femoral Vein: 1.1. Compressibility - Fully compressible: Thrombus - None : Flow - Phasic: Augmentation -Normal: Reflux - None. 2. Femoral Vein: 2.1. Compressibility - Fully compressible: Thrombus - None : Flow - Phasic: Augmentation -Normal: Reflux - None. 3. Popliteal Vein: 3.1. Compressibility - Fully compressible: Thrombus - None : Flow - Phasic: Augmentation -Normal: Reflux - Severe. >3.60s 4. Posterior Tibial Vein: 4.1. Compressibility - Fully compressible: Thrombus - None: Flow - Phasic: Augmentation -Normal: Reflux - None. 5. Peroneal Vein: 5.1. Compressibility - Fully compressible: Thrombus - None: Flow - Phasic: Augmentation -Normal: Reflux - None. 6. Great Saphenous Vein: 6.1. Compressibility - Fully compressible: Thrombus - None: Flow - Phasic: Augmentation - Normal: Reflux - None. LEFT: 1. Common Femoral Vein: 1.1. Compressibility - Fully compressible: Thrombus - None: Flow - Phasic: Augmentation -Normal: Reflux - None. 2. Femoral Vein: 2.1. Compressibility - Fully compressible: Thrombus - None: Flow - Phasic: Augmentation -Normal: Reflux - None. 3. Popliteal Vein: 3.1. Compressibility - Fully compressible: Thrombus - None : Flow - Phasic: Augmentation -Normal: Reflux - None. 4. Posterior Tibial Vein: 4.1. Compressibility - Fully compressible: Thrombus - None: Flow - Phasic: Augmentation -Normal: Reflux - None. 5. Peroneal Vein: 5.1. Compressibility - Fully compressible: Thrombus - None: Flow - Phasic: Augmentation -Normal: Reflux - None. 6. Great Saphenous Vein: 6.1. Compressibility - Fully compressible: Thrombus - None: Flow - Phasic: Augmentation - Normal: Reflux - None. OTHER FINDINGS: Right: None significant. Left: None significant. IMPRESSION: Right: No evidence of deep or superficial vein thrombosis of the right lower extremity. Valvular incompetence noted of the right popliteal vein. Left: No evidence of deep or superficial vein thrombosis of the left lower extremity. Normal valve function noted of the left side.
[2017-09-10 20:43] LABS: T4 7.29 ug/dL (5.5-11.0)
[2017-09-11] MEDS: Levothyroxine 50 MCG TAB PO SCH (06:28)
[2017-09-11] MEDS ORDERED: Pneumococcal 23-Valent Vaccine IM ONE (10:00)
[2017-09-11] MEDS ORDERED: Influenza Vaccine 60 mcg/0.5 mL SYR (4YR UP) IM ONE (10:00)
--- NOTE | 2017-09-11 11:04 | PCM.PYCHPN ---
Psychiatric Progress Note - Psychiatric Progress Note Patient seen today, length of contact: 15 min Patient Chief Complaint: "I am still feeling depressed." Problems Identified/Issues Discussed: Patient was seen and examined, chart was reviewed and discussed with staff. Patient reports some improvement in his mood, and some improvement in his sleep and appetite. He still reports depressed and at times feelings of hopelessness and helplessness. He reports that he is concerned because his right ankle is swollen and it is becoming very uncomfortable. He was seen by the medical team yesterday. Patient is alert and well groomed. He is cooperative, maintains eye contact and attention during the encounter. The patient's mood is depressed and his affect is consistent with his mood. He wants to go to the rehab after discharge. Patient is compliant with medications and denies any side effects. Symptoms are improving but need more time to stabilize. Support and psychoeducation given. Medication Change: Yes (increase zoloft) Medical Record Reviewed: Yes Mental Status Examination - Cognitive Function Orientation: Person, Place, Situation, Time Attention: WNL Concentration: WNL Association: WNL Fund of Knowledge: Poor - Mood Mood: Depressed - Affect Affect: Broad - Speech Speech: Appropriate - Formal Thought Process Formal Thought Process: No Impairment - Suicidal Ideation Suicidal Ideation: No - Homicidal Ideation Homicidal Ideation: No Goal/Treatment Plan - Goal/Treatment Plan Need for Continued Stay: Severe depression anxiety, Discharge may exacerbated symptoms, Severe functional impairment Progress Toward Problem(s) and Goals/Treatment Plan: Bipolar mixed severe without psychotic features Attend groups and activities Individual therapy daily Psychoeducation and support daily Encourage compliance with meds and after care Refer to outpatient therapy Teach healthy lifestyle methods, i.e. diet, exercise, meditation Atarax 25 mg PO Q6 PRN Topamax 50 mg PO HS Geodon 40mg PO HS Sertraline 100 mg PO QDaily - Smoking Cessation Smoking Cessation Initiated: No
--- NOTE | 2017-09-11 12:58 | CP.PCM.CON ---
History of Present Illness - History of Present Illness History of Present Illness: Podiatry Consult note for Dr. Domínguez 47 year old male with PMHx including hypothyroidsim and depression was seen at bedside for left toenail injury. 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 He states that he does not wear steel toed boots. He also admits that the bottom of his feet are dry. He denies any pain to his left big toe, denies any drainage. Denies any n/v/f/c/sob/cp. Past Patient History - Infectious Disease Hx of Infectious Diseases: None - Tetanus Immunizations Tetanus Immunization: Unknown - Past Medical History & Family History Past Medical History?: Yes - Past Social History Smoking Status: Never Smoked - CARDIAC Hx Hypertension: No - PULMONARY Hx Tuberculosis: No - NEUROLOGICAL Hx Seizures: No - HEENT Hx HEENT Problems: No - RENAL Hx Chronic Kidney Disease: No - ENDOCRINE/METABOLIC Hx Hypothyroidism: Yes - HEMATOLOGICAL/ONCOLOGICAL Hx Human Immunodeficiency Virus (HIV): No - INTEGUMENTARY Hx Dermatological Problems: No - MUSCULOSKELETAL/RHEUMATOLOGICAL Hx Fractures: Yes (COMPOUND FX OF THERIGHT ANKLE) - GASTROINTESTINAL Hx Gall Bladder Disease: Yes (Removed) - GENITOURINARY/GYNECOLOGICAL Hx Sexually Transmitted Disorders: No - PSYCHIATRIC Hx Substance Use: Yes - SURGICAL HISTORY Hx Cholecystectomy: Yes Hx Coronary Artery Bypass Graft: Yes - ANESTHESIA Hx Anesthesia: Yes Hx Anesthesia Reactions: No Hx Malignant Hyperthermia: No Meds Allergies/Adverse Reactions: Allergies Allergy/AdvReac Type Severity Reaction Status Date / Time iodine Allergy RASH Verified 09/07/17 21:09 ketorolac [From Toradol] Allergy ANAPHYLAXIS Verified 09/09/17 02:03 shellfish derived Allergy RASH Verified 09/07/17 21:09 - Medications Medications: Current Medications Acetaminophen (Tylenol 325mg Tab) 650 mg PO Q6 PRN PRN Reason: Pain, Mild (1-3) Last Admin: 09/10/17 21:32 Dose: 650 mg Furosemide (Lasix) 20 mg PO DAILY [facility] Hydroxyzine HCl (Atarax) 25 mg PO Q6 PRN PRN Reason: Agitation Last Admin: 09/10/17 21:33 Dose: 25 mg Levothyroxine Sodium (Synthroid) 50 mcg PO DAILY@0630 [facility] Last Admin: 09/11/17 06:28 Dose: 50 mcg Sertraline HCl (Zoloft) 25 mg PO DAILY [facility] Topiramate (Topamax) 50 mg PO HS [facility] Ziprasidone (Geodon Cap) 40 mg PO HS [facility] Physical Exam - Constitutional Appears: Well, Non-toxic, No Acute Distress - Extremities Exam Additional comments: lower extremity focused exam Vasc: DP and PT pulses palpable 2/4 b/l. CFT < 3 seconds to all digits b/l. Skin temperature warm to warm from proximal to distal. +1 pitting edema noted to lower extremities b/l. Neuro: Gross sensation intact b/l. Ortho: No tenderness on palpation to left hallux Derm: Subungal hematoma noted to left hallux, distal aspect of nail is loose from the nail bed, no drainage, no purulence, no malodor noted. Webspaces 3,4 on the right and 4 on the left are macerated. Skin is diffusely xerotic. - Neurological Exam Neurological exam: Alert, Oriented x3 - Psychiatric Exam Psychiatric exam: Normal Affect, Normal Mood Results - Vital Signs Recent Vital Signs: Last Vital Signs Temp 97.5 F L 09/11/17 06:33 Pulse 72 09/11/17 06:33 Resp 18 09/11/17 06:33 BP 140/82 09/11/17 06:33 Pulse Ox 97 09/09/17 06:04 - Labs Result Diagrams: 09/07/17 22:46 09/07/17 22:46 Labs: Laboratory Results - last 24 hr 09/10/17 09/10/17 19:36 19:36 Free T4 0.89 Thyroxine (T4) 7.29 TSH 3rd Generation 4.19 Assessment & Plan - Assessment and Plan (Free Text) Assessment: 47 year old male with left hallux subungal hematoma Plan: patient examined and evaluated discussed in detail with attending, Dr. Domínguez labs, chart, vitals reviewed venous duplex reviewed- no DVT verbal consent was obtained and left hallux was sharply debrided in thickness and in length without incident, hematoma noted under nail, patient refused evacuation of hematoma at this time, will asses again tomorrow lac hydrin ordered, to be applied to lower extremities daily discussed the importance of keeping webspaces clean, patient to clean daily after shower with a towel podiatry will cont to follow patient while in house
[2017-09-11] MEDS: Ammonium Lactate 12% Lotion (225 g) EXT SCH (17:37)
--- NOTE | 2017-09-11 19:11 | CP.PCM.PCO ---
Physician Communication Note - Physician Communication Note Physician Communication Note: See Above
[2017-09-12] MEDS: Levothyroxine 50 MCG TAB PO SCH (05:39)
[2017-09-12 09:02] LABS: BLOOD UREA NITROGEN 16 mg/dL (9-20); CALCIUM 9.3 mg/dl (8.6-10.4); GFR AFRICAN-AMERICAN > 60; GFR NON-AFRICAN AMERICAN > 60
[2017-09-12] MEDS: Ammonium Lactate 12% Lotion (225 g) EXT SCH (09:31)
--- NOTE | 2017-09-12 13:48 | CP.PCM.PN ---
Subjective - Date & Time of Evaluation Date of Evaluation: 09/12/17 Time of Evaluation: 10:15 - Subjective Subjective: Podiatry Progress Note- Dr. Domínguez 47 y.o male seen and evaluated at bedside for L hallux subungal hematoma. Patient is seen resting comfortably in bed, in NAD, and AA0x3. Patient reports decrease pain to the left foot. Patient is seen ambulating well without difficulties. Patient denies overnight acute events. Denies n/v/sob/cp/chills/f or d. Denies calf tenderness. Objective - Vital Signs/Intake and Output Vital Signs (last 24 hours): Temp Pulse Resp BP Pulse Ox 98.1 F 80 20 124/90 97 09/12/17 06:23 09/12/17 06:23 09/12/17 06:23 09/12/17 09:30 09/09/17 06:04 - Medications Medications: Current Medications Acetaminophen (Tylenol 325mg Tab) 650 mg PO Q6 PRN PRN Reason: Pain, Mild (1-3) Last Admin: 09/10/17 21:32 Dose: 650 mg Furosemide (Lasix) 20 mg PO DAILY [facility] Last Admin: 09/12/17 09:30 Dose: 20 mg Hydroxyzine HCl (Atarax) 25 mg PO Q6 PRN PRN Reason: Agitation Last Admin: 09/11/17 21:44 Dose: 25 mg Lactic Acid (Lac-Hydrin 12% Lotion (225 G)) 0 gm EXT DAILY [facility] Last Admin: 09/12/17 09:31 Dose: 1 appl Levothyroxine Sodium (Synthroid) 50 mcg PO DAILY@0630 [facility] Last Admin: 09/12/17 05:39 Dose: 50 mcg Sertraline HCl (Zoloft) 100 mg PO DAILY [facility] Last Admin: 09/12/17 09:29 Dose: 100 mg Topiramate (Topamax) 50 mg PO [facility] Last Admin: 09/11/17 21:42 Dose: 50 mg Ziprasidone (Geodon Cap) 40 mg PO HS [facility] Last Admin: 09/11/17 21:14 Dose: 40 mg - Labs Labs: 09/07/17 22:46 09/12/17 08:38 - Constitutional Appears: Well, Non-toxic, No Acute Distress - Extremities Exam Extremities Exam: absent: Calf Tenderness Additional comments: Lower extremity focused exam Vasc: DP and PT pulses palpable 2/4 b/l. CFT < 3 seconds to all digits b/l. Skin temperature warm to warm from proximal to distal. +1 pitting edema noted to lower extremities b/l. Neuro: Gross sensation intact b/l. Ortho: No tenderness on palpation to left hallux Derm: Subungal hematoma noted to left hallux, distal aspect of nail is loose from the nail bed, no drainage, no purulence, no malodor noted. Blister with hemmorhagic fluid filled under hallux nail plate that was debrided yesterday. Webspaces 3,4 on the right and 4 on the left are macerated. Skin is diffusely xerotic. - Neurological Exam Neurological Exam: Alert, Awake, Oriented x3 - Psychiatric Exam Psychiatric exam: Normal Affect, Normal Mood Assessment and Plan - Assessment and Plan (Free Text) Assessment: 47 year old male with left hallux subungal hematoma Plan: -Patient examined and evaluated with attending Dr. Domínguez -Labs, chart, vitals reviewed- afebrile, absent leukocytosis -Venous duplex reviewed- no DVT -Cleansed L hallux in sterile manner, evacuation of hematoma with 20 gauge needle without incidient. ~ 2 cc of serosangious fluid evacuated. No malodor, no purulence, no clinical signs of infection noted. -Dressed blister with dsd and cling. Instructed to keep dressing c/d/i. Do not get wet -Lac hydrin ordered, to be applied to lower extremities daily -Podiatry will cont to follow patient while in house
--- NOTE | 2017-09-12 19:52 | PCM.PYCHPN ---
Psychiatric Progress Note - Psychiatric Progress Note Patient seen today, length of contact: 15 minutes Patient Chief Complaint: I'm feeling better. Problems Identified/Issues Discussed: Patient seen, chart reviewed, case discussed with the staff. Issues related to illness and treatment were discussed with the patient. Reported compliant with treatment with no adverse affects. Tolerating treatment very well. Patient reported feeling better with the treatment. At the time of evaluation, patient was awake alert oriented 3, had no delusions , no auditory or visual hallucinations, no suicidal ideations or homicidal ideations. Aftercare discussed with the patient. Medical Problems: Hypertension Diagnostic Results: Reviewed DSM 5 Symptoms Update: Some improvement with treatment Medication Change: No Medical Record Reviewed: Yes Consults ordered or reviewed: Reviewed Mental Status Examination - Cognitive Function Orientation: Person, Place, Situation, Time Memory: Intact Attention: WNL Concentration: WNL Association: WNL Fund of Knowledge: [facility] Decription of patient's judgement and insights: Fair - Mood Mood: Neutral - Affect Affect: Other (Appropriate) - Speech Speech: Appropriate - Formal Thought Process Formal Thought Process: No Impairment Psychotic Thoughts and Behaviors: None - Suicidal Ideation Suicidal Ideation: No - Homicidal Ideation Homicidal Ideation: No Goal/Treatment Plan - Goal/Treatment Plan Need for Continued Stay: Remain at risks for inpatient hospitalization, Discharge may exacerbated symptoms, Severe functional impairment Progress Toward Problem(s) and Goals/Treatment Plan: Patient education Supportive therapy Continue treatment as before. Estimated Date of D/C: 09/14/17 - Smoking Cessation Smoking Cessation Initiated: No
[2017-09-13] MEDS: Levothyroxine 50 MCG TAB PO SCH (06:22)
[2017-09-13] MEDS: Ammonium Lactate 12% Lotion (225 g) EXT SCH ×2 (09:53→14:00)
--- NOTE | 2017-09-13 14:00 | CP.PCM.PN ---
Subjective - Date & Time of Evaluation Date of Evaluation: 09/13/17 Time of Evaluation: 11:00 - Subjective Subjective: Podiatry Progress Note- Dr. Domínguez 47 y.o male seen and evaluated at bedside for L hallux subungal hematoma. Patient is 1 day s/p drainage of blister. Patient is seen resting comfortably in bed, in NAD, and AA0x3. Patient reports tenderness to the L foot, improved in pain. Patient is seen ambulating well without difficulties. Patient denies overnight acute events. Denies n/v/sob/cp/chills/f or d. Denies calf tenderness. Objective - Vital Signs/Intake and Output Vital Signs (last 24 hours): Temp Pulse Resp BP Pulse Ox 98.2 F 69 18 136/83 97 09/13/17 05:40 09/13/17 05:40 09/13/17 05:40 09/13/17 09:50 09/09/17 06:04 - Medications Medications: Current Medications Acetaminophen (Tylenol 325mg Tab) 650 mg PO Q6 PRN PRN Reason: Pain, Mild (1-3) Last Admin: 09/13/17 09:50 Dose: 650 mg Furosemide (Lasix) 20 mg PO DAILY [facility] Last Admin: 09/13/17 09:50 Dose: 20 mg Hydroxyzine HCl (Atarax) 25 mg PO Q6 PRN PRN Reason: Agitation Last Admin: 09/12/17 22:23 Dose: 25 mg Lactic Acid (Lac-Hydrin 12% Lotion (225 G)) 0 gm EXT DAILY [facility] Last Admin: 09/13/17 09:53 Dose: Not Given Levothyroxine Sodium (Synthroid) 50 mcg PO DAILY@0630 [facility] Last Admin: 09/13/17 06:22 Dose: 50 mcg Sertraline HCl (Zoloft) 100 mg PO DAILY [facility] Last Admin: 09/13/17 09:52 Dose: 100 mg Topiramate (Topamax) 50 mg PO [facility] Last Admin: 09/12/17 22:24 Dose: 50 mg Ziprasidone (Geodon Cap) 40 mg PO HS [facility] Last Admin: 09/12/17 22:23 Dose: 40 mg - Labs Labs: 09/07/17 22:46 09/12/17 08:38 - Constitutional Appears: Well, Non-toxic, No Acute Distress - Extremities Exam Extremities Exam: absent: Calf Tenderness Additional comments: Lower extremity focused exam Vasc: DP and PT pulses palpable 2/4 b/l. CFT < 3 seconds to all digits b/l. Skin temperature warm to warm from proximal to distal. +1 pitting edema noted to lower extremities b/l. Neuro: Gross and protective sensation intact b/l. Ortho: No tenderness on palpation to left hallux Derm: Subungal hematoma noted to the proximal nail plate. Remainder of the nail plate is attached to the nail bed without lifting or detachment noted. Hallux blister that was exvacuated on 09/12/17 did not form again. Stable. Webspaces 3, 4 on the right and 4 on the left are macerated. Skin is diffusely xerotic. - Neurological Exam Neurological Exam: Alert, Awake, Oriented x3 - Psychiatric Exam Psychiatric exam: Normal Affect, Normal Mood Assessment and Plan - Assessment and Plan (Free Text) Assessment: 47 year old male with left hallux subungal hematoma and 1 day s/p drainage of left hallux blister Plan: -Patient examined and evaluated -Discussed plan in detail with attending Dr. Domínguez -Labs, chart, vitals reviewed- afebrile, absent leukocytosis -Venous duplex reviewed- no DVT -Cleansed L hallux with saline solution and dressed with w2d saline and dsd. No malodor, no purulence, no clinical signs of infection noted. -Instructed to keep dressing c/d/i. Do not get wet -If dressing gets wet, please clean and apply dsd, and cling. -Lac hydrin ordered, to be applied to lower extremities daily -Podiatry will cont to follow patient while in house
--- NOTE | 2017-09-13 19:19 | PCM.PYCHPN ---
Psychiatric Progress Note - Psychiatric Progress Note Patient seen today, length of contact: 15 minutes Patient Chief Complaint: I'm feeling better. Problems Identified/Issues Discussed: Patient seen, chart reviewed, case discussed with the staff. Issues related to illness and treatment were discussed with the patient. Reported compliant with treatment with no adverse affects. Tolerating treatment very well. Patient reported feeling better with the treatment. At the time of evaluation, patient was awake alert oriented 3, had no delusions , no auditory or visual hallucinations, no suicidal ideations or homicidal ideations. Aftercare discussed with the patient. Medical Problems: Hypertension Diagnostic Results: Reviewed DSM 5 Symptoms Update: Improving with treatment Medication Change: No Medical Record Reviewed: Yes Consults ordered or reviewed: Reviewed Mental Status Examination - Cognitive Function Orientation: Person, Place, Situation, Time Memory: Intact Attention: WNL Concentration: WNL Association: WN Fund of Knowledge: [facility] Decription of patient's judgement and insights: Fair - Mood Mood: Neutral - Affect Affect: Other (Appropriate) - Speech Speech: Appropriate - Formal Thought Process Formal Thought Process: No Impairment Psychotic Thoughts and Behaviors: None - Suicidal Ideation Suicidal Ideation: No - Homicidal Ideation Homicidal Ideation: No Goal/Treatment Plan - Goal/Treatment Plan Need for Continued Stay: Remain at risks for inpatient hospitalization, Discharge may exacerbated symptoms, Severe functional impairment Progress Toward Problem(s) and Goals/Treatment Plan: Patient education Supportive therapy Continue treatment as before. Estimated Date of D/C: 09/14/17 - Smoking Cessation Smoking Cessation Initiated: No
[2017-09-14] MEDS: Levothyroxine 50 MCG TAB PO SCH (06:06)
[2017-09-14] MEDS: Ammonium Lactate 12% Lotion (225 g) EXT SCH (10:43)
--- NOTE | 2017-09-14 13:48 | PCM.PYCHPN ---
Psychiatric Progress Note - Psychiatric Progress Note Patient seen today, length of contact: 15 minutes Patient Chief Complaint: "I am feeling better." Problems Identified/Issues Discussed: Patient was seen and examined, chart was reviewed and discussed with staff. Today patient reports improvement in his mood, and feelings of hopelessness and helplessness. He reports improvement in his sleep and appetite. He is cooperative, maintains eye contact and attention during the encounter. He wants to go to the rehab after discharge. Patient is compliant with medications and denies any side effects. Symptoms are improving but need more time to stabilize. Support and psychoeducation given. Medication Change: No Medical Record Reviewed: Yes Mental Status Examination - Cognitive Function Orientation: Person, Place, Situation, Time Memory: Intact Attention: WNL Concentration: Poor Association: WNL Fund of Knowledge: Poor - Mood Mood: Neutral - Affect Affect: Other (Appropriate) - Speech Speech: Appropriate - Formal Thought Process Formal Thought Process: No Impairment - Suicidal Ideation Suicidal Ideation: No - Homicidal Ideation Homicidal Ideation: No Goal/Treatment Plan - Goal/Treatment Plan Need for Continued Stay: Remain at risks for inpatient hospitalization, Discharge may exacerbated symptoms, Severe functional impairment Progress Toward Problem(s) and Goals/Treatment Plan: Bipolar mixed severe without psychotic features Attend groups and activities Individual therapy daily Psychoeducation and support daily Encourage compliance with meds and after care Refer to outpatient therapy Teach healthy lifestyle methods, i.e. diet, exercise, meditation Atarax 25 mg PO Q6 PRN Topamax 50 mg PO HS Geodon 40mg PO HS Sertraline 100 mg PO QDaily Estimated Date of D/C: 09/14/17
[2017-09-15 06:46] VITALS: PULSE 61; RESP 20; TEMP 98
[2017-09-15] MEDS: Ammonium Lactate 12% Lotion (225 g) EXT SCH (09:34)
[2017-09-15 09:37] VITALS: BP 120/80
--- NOTE | 2017-09-15 10:29 | PCM.PYCHDC ---
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 The patient reports that he lost his last month due to a brain aneurysm and has been depressed since then. He reports being on our unit last February when she first became sick because it was overwhelming and became a lot for him to handle. The patient says that since July he has had suicidal thoughts and urges to kill himself, he reports that he has cut himself in the past month. He reports that he he does not have any definitive plans to kill himself but there are a lot of sharp objects where he works. The patient reports that he only gets 2 hours of sleep a night and that today has been the first day that he has eaten well in a while. The patient reports that it is difficult for him to concentrate at work and that he has become disinterested in working. The patient reports that he normally loves watching football but his interest in watching also decreased in the past month or so. The patient had been on Wellbutrin and Seroquel but has insurance issues and could not get his medications since June. His insurance issues are now resolved and he would like to see a psychiatrist and therapist on an outpatient basis as well as take medications for his depression. However, he requests changing Seroquel because it caused him to gain a lot of weight. The patient reports that he is becoming anxious due to his condition. The patient denies the use of alcohol, drugs, and tobacco. The patient denies hearing voices or visual hallucinations. The patient does mention that he has 7 year old twins from a previous marriage whom he tries to keep in touch with but has found it difficult because of his ex -. Patient is alert and cooperative. The patient is a large male appearing slightly unkempt. The patient maintains eye contact and attention during the encounter. He responds to questions appropriately in a normal tone. His thought process is linear. The patient's mood is depressed and his affect is consistent with his mood. The patient reports suicidal ideation. Consultations:: List each consultation separately and include: 1. Reason for request. 2. Findings. 3. Follow-up Summary of Hospital Course include:: 1. Description of specific treatment plan utilized for patients during their course of treatmen. 2. Summarize the time- course for resolution of acute symptoms and/or regressed behaviors. 3. Describe issues identified and worked on during hospitalization. 4. Describe medication utilized. 5. Describe medical problems identified and treated. 6. Reassessment of suicide risk Summary of Hospital Course: During the course of his stay, patient (pt) started progressively improving and he no longer remained irritable, depressed, and suicidal. His mood and anxiety symptoms were improved and he started attending groups and meetings and started socializing. Patient denied any feelings of hopelessness, helplessness, and worthlessness, denied any problem with the sleep or appetite, denied suicidal ideation or homicidal ideation. Pt denied any auditory or visual hallucinations. Some changes were made in his current medications and patient was discharged on following medications. He tolerated these medications very well and denied any side effects. [facility] [place] [facility] treatment. - Diagnosis (1) Bipolar disorder Status: Acute - Final Diagnosis (DSM 5) Condition upon Discharge: GOOD DSM 5: Bipolar mixed severe without psychotic features Disposition: HOME/ ROUTINE Follow-up Treatment Plan: Education: Pt was educated and counseled about the risks and benefits of taking and not taking medications. Pt was educated and counseled about the risks of drinking and abusing drugs. Pt was educated and counseled to go to the ER or call 911 if pt develop suicidal ideation or homicidal ideation, worsening of symptoms or severe side effects of the meds. Prescriptions/Medication Reconciliation: Sertraline [Zoloft] 100 mg PO DAILY #30 tab Topiramate [Topamax] 50 mg PO HS #30 tab Ziprasidone [Geodon Cap] 40 mg PO HS #30 cap - Smoking Cessation Smoking Cessation Medication prescribed: No - Antipsychotic Medications Pt discharged on 2 or more routine antipsychotic medications: No
== END 2017-09-15 12:28 | disposition home or self-care (01) | DRG 430 ==
LOC: C.ER 20:55 → C.5E 09-08 01:34
DX: F31.63 Bipolar disorder, current episode mixed, severe, without psychotic features (principal); B35.1 Tinea unguium; E03.9 Hypothyroidism, unspecified; E66.9 Obesity, unspecified; M20.5X2 Other deformities of toe(s) (acquired), left foot; K21.9 Gastro-esophageal reflux disease without esophagitis